=== PATIENT | male | born 1930 | race Caucasian/White ===

== ENCOUNTER 2019-03-25 14:30 | Inpatient (IN) | payer MEDICARE, OTHER ==
[~2019-03-25] VITALS: Ht 160 cm; Wt 79.8 kg
[2019-03-25] MEDS ORDERED: OLANZAPINE 5 MG TABLET PO ONE (14:45)
--- NOTE | 2019-03-25 14:50 | NUR ---
Pt sitting on the bed in no acute distress, calm and cooperative. 1 to 1 security at the bedside for safety.
[2019-03-25 15:11] LABS: BASOPHILS % (AUTO) 0.5 % (0.0-2.0); EOSINOPHILS # (AUTO) 0.1 K/uL (0.0-0.7); EOSINOPHILS % (AUTO) 1.7 % (0.0-7.0); HEMATOCRIT 39.8 % (36.7-47.1); HEMOGLOBIN 13.2 g/dL (12.5-16.3); LYMPHOCYTES # (AUTO) 1.7 K/uL (20.0-40.0); LYMPHOCYTES % (AUTO) 24.7 % (20.5-51.5); MEAN CORPUSCULAR HGB CONC 33 g/dL (32.5-36.3); MEAN CORPUSCULAR VOLUME 90.8 fL (73.0-96.2); MONOCYTES # (AUTO) 0.5 K/uL (2.0-10.0); NEUTROPHILS # (AUTO) 4.6 K/uL (1.8-8.9); NEUTROPHILS % (AUTO) 66.1 % (38.5-71.5); PLATELET COUNT (AUTO) 188 K/uL (152-348); RED BLOOD CELL COUNT(AUTO) 4.38 MIL/uL (4.06-5.63)
[2019-03-25 15:46] LABS: CARBON DIOXIDE 27 mmol/L (21-32); CHLORIDE 106 mmol/L (98-107); CREATININE 1.2 mg/dL (0.6-1.3); GLUCOSE 123 mg/dL (74-106); POTASSIUM 4.8 mmol/L (3.5-5.1); UREA NITROGEN, BLOOD 19 mg/dL (7-18)
[2019-03-25] MEDS ORDERED: MAGN400O6 PO (15:57)
[2019-03-25] MEDS ORDERED: MULT-213 PO (15:57)
[2019-03-25] MEDS ORDERED: ERGO500040 PO (15:57)
[2019-03-25] MEDS ORDERED: CRAN500T2 PO (15:57)
[2019-03-25] MEDS ORDERED: ACET325T53 PO (15:57)
[2019-03-25] MEDS ORDERED: AMIN30LI2 PO (15:57)
[2019-03-25] MEDS ORDERED: RANI150T8 PO (15:57)
[2019-03-25] MEDS ORDERED: MAGN200T4 PO (15:57)
[2019-03-25] MEDS ORDERED: RISP0.5T20 PO ×2 (15:57)
[2019-03-25] MEDS ORDERED: ASPI81TA31 PO (15:57)
[2019-03-25 16:00] LABS: ALANINE AMINOTRANSFERASE 12 U/L (16-63); ALKALINE PHOSPHATASE 94 U/L (50-136); ASPARTATE AMINOTRANSFERASE 16 U/L (15-37); BILIRUBIN,DIRECT 0.1 mg/dL (0.0-0.2); BILIRUBIN,TOTAL 0.4 mg/dL (0.2-1.0); TOTAL PROTEIN, SERUM 7.3 g/dL (6.4-8.2)
[2019-03-25 16:04] LABS: ETHANOL < 3 MG/DL (0-0)
--- NOTE | 2019-03-25 16:10 | NUR ---
Patient is resting comfortably in bed with eyes closed, NAD noted.
--- NOTE | 2019-03-25 16:20 | NUR ---
Pt is medically cleared by Dr Monique, Placed a call to PET for psych eval.
[2019-03-25 16:33] LABS: ACETAMINOPHEN < 2.0 ug/mL (10-30)
--- NOTE | 2019-03-25 16:58 | NUR ---
Talat Stubbs LCSW at the bedside for Psych eval.
--- NOTE | 2019-03-25 17:20 | NUR ---
PT PLACED ON 5150 HOLD FOR GD BY MAURICE HINES [facility].
[2019-03-25 17:39] LABS: *BILIRUBIN,URIN NEGATIVE (NEGATIVE); *BLOOD, URINE NEGATIVE (NEGATIVE); *CLARITY,URINE CLEAR (CLEAR); *COLOR,URINE YELLOW (YELLOW); *KETONES,URINE NEGATIVE (NEGATIVE); LEUKOCYTE ESTERASE ,URINE NEGATIVE (NEGATIVE); NITRITE, URINE NEGATIVE (NEGATIVE); UGLUCOSE NEGATIVE (NEGATIVE)
[2019-03-25] MEDS ORDERED: LORAZEPAM 0.5 MG TABLET PO PRN (18:15)
[2019-03-25] MEDS ORDERED: MAGNESIUM HYDROXIDE 30 ML LIQUID UDC PO PRN (18:15)
[2019-03-25] MEDS ORDERED: ZOLPIDEM 5 MG TABLET PO PRN (18:15)
[2019-03-25] MEDS ORDERED: MAG HYDROX/AL HYDROX/SIMETH 30 ML LIQUID UDC PO PRN (18:15)
[2019-03-25] MEDS ORDERED: ACETAMINOPHEN 325 MG TABLET PO PRN (18:15)
[2019-03-25 20:00] VITALS: BP 122/60
[2019-03-25 21:39] LABS: *AMPHETAMINE, URINE NEGATIVE (NEGATIVE); *BARBITURATE, URINE NEGATIVE (NEGATIVE); *CANNABINOID, URINE NEGATIVE (NEGATIVE); *COCCAINE, URINE NEGATIVE (NEGATIVE)
[2019-03-25 21:40] LABS: *OPIATE, URINE NEGATIVE (NEGATIVE); *PHENCYCLIDINE SCREEN,URINE NEGATIVE (NEGATIVE)
--- NOTE | 2019-03-25 22:00 | NUR ---
ADMITTING NOTE: received to care at 1900. pt initially received by previous shift at 1800, from the emergency room, on a 72 hour hold, for gravely disabled, a transfer from the [facility]. according to the hold, he was attempting to elope, increasingly aggressive and paranoid, believing that staff were taking his checks, and all of his money. upon eveluation by the crisis team, he had no explanation, or viable self care plan. while in the ER, they reported that he appeared distracted by internal stimuli, and had no idea where he was, or why he was even there. upon arrival on the unit, he was still confused. he denied needing to be here, stating that people were stealing from him. upon start of my shift, he was asleep, but woke up when vital signs were taken, and went back to sleep. as of 2199, he remains asleep. no distress noted. will continue to monitor closely. Addendum: 03/26/19 at 0113 by DIANA BISHOP LVN pt was advised of hold. patients rights handbook also provided.
--- NOTE | 2019-03-26 06:00 | NUR ---
slpet 9.5 hours. assited with am care, and shower. currently lying in bed. no distress noted.
[2019-03-26 07:30] VITALS: BP 128/62
[2019-03-26] MEDS: risperiDONE 0.5 MG TABLET PO SCH ×2 (09:13→20:30)
--- NOTE | 2019-03-26 11:14 | NUR ---
WOUND CARE CONSULT: PT PRESENTS WITH SKIN TEAR TO LEFT FOREARM, PRESENT ON ADMISSION. RECOMMENDATIONS MADE FOR SKIN PROTECTION AND WOUND CARE. DISCUSSED WITH NURSING STAFF. WILL SEE PRN. STEVENS IN AGREEMENT WITH PLAN OF CARE. Addendum: 03/26/19 at 1115 by AISHWARYA ESQUIVEL RN Amended: Links added.
--- NOTE | 2019-03-26 11:44 | NUR ---
FIREARMS REPORT: Vp Customer Development completed and submitted a [employer] firearms report for [address] Disability certification. A copy of report has been placed in patient chart.
--- NOTE | 2019-03-26 13:23 | NUR ---
Initial Discharge Planning: Patient currently resides at [facility] [[address] [place] [address]; [phone]]. Neck Cutter awaiting confirmation from Search Engine Optimizer Jaclyn that patient can return to facility. Patient's friend - Lobobeck Chua [[phone]] and patient express desire for patient to return to facility once he is ready for discharge. Neck Cutter will continue to meet with patient, and collaborate with patient, his support, and MD to formulate a proper and safe discharge plan.
[2019-03-26 15:31] VITALS: BP 93/52
[2019-03-26 20:06] VITALS: BP 103/60
--- NOTE | 2019-03-26 22:00 | NUR ---
received to care, lying in bed, pleasant but agitated upon approach. per systems navigator, he wants to leave. believes he was supposed to go to a different hospital, and rob sent him to the wrong place. he was reassured and told that he should discuss with the doctor, tomorrow. he seemed to accept this but refused his bedtime medications. as of 2199, he appears to be asleep, no distress noted. will continue to monitor closely.
[2019-03-27 07:30] VITALS: BP 103/61
[2019-03-27] MEDS: risperiDONE 0.5 MG TABLET PO SCH ×2 (09:00→21:00)
[2019-03-27] MEDS ORDERED: OLANZAPINE 10 MG VIAL IM ONE (09:15)
[2019-03-27 15:30] VITALS: BP 91/66
[2019-03-27 20:35] VITALS: BP 103/61
--- NOTE | 2019-03-27 22:00 | NUR ---
received to care, lying in bed, isolative, and guarded, upon approach. compliant with vital signs, but refused all medications, even when approached with a science consultant. as of 2199 he appears to be asleep. bed alarm on, for safety. no distress noted. will continue to monitor closely.
--- NOTE | 2019-03-28 06:30 | NUR ---
slept well, last night. is now awake. assisted with am care, and shower. no distress noted.
[2019-03-28 07:30] VITALS: BP 120/69
[2019-03-28] MEDS: risperiDONE 0.5 MG TABLET PO SCH ×2 (08:53→20:48)
[2019-03-28 16:00] VITALS: BP 103/65
[2019-03-28] MEDS ORDERED: ACETAMINOPHEN 325 MG TABLET PO PRN (17:15)
[2019-03-28] MEDS ORDERED: MAGNESIUM HYDROXIDE 30 ML LIQUID UDC PO PRN (17:15)
[2019-03-28] MEDS: FAMOTIDINE 20 MG TABLET PO SCH (20:48)
[2019-03-28 21:13] VITALS: BP 106/58
--- NOTE | 2019-03-29 06:42 | NUR ---
GPS: Remain calm and cooperative with meds and care. slept 7:30 hrs through the night. no agitation noted at this time. resting in bed comfortably. continue plan of care.
[2019-03-29 07:30] VITALS: BP 123/61
[2019-03-29] MEDS ORDERED: Medication Not On Formulary EA (Multivitamins W-Minerals (Multivitamin With Minerals) 1 PO SCH (09:00)
[2019-03-29] MEDS ORDERED: MAGNESIUM 200 MG PO SCH (09:00)
[2019-03-29] MEDS: MAGNESIUM OXIDE 400 MG TABLET PO SCH ×2 (09:00→17:57)
[2019-03-29] MEDS: FAMOTIDINE 20 MG TABLET PO SCH ×2 (09:00→20:42)
[2019-03-29] MEDS: risperiDONE 0.5 MG TABLET PO SCH ×3 (09:00→17:57)
[2019-03-29] MEDS: MULTIVIT, IRON, MIN NO. 8, FA TABLET PO SCH (09:00)
[2019-03-29] MEDS: ASPIRIN 81 MG TAB.CHEW PO SCH (09:00)
[2019-03-29] MEDS ORDERED: OLANZAPINE 10 MG VIAL IM ONE ×2 (09:00)
[2019-03-29] MEDS ORDERED: Medication Not On Formulary EA (Amino Acids/Protein Hydrolys (Pro-Stat Liquid) 30 ML) PO SCH (09:00)
--- NOTE | 2019-03-29 09:00 | NUR ---
Pt was offered and encouraged patient to take his medications , explained the risk and benefits of each medication through claims investigator. Patient became angry stated " No querro medicina. no querro medicaina. / Violette trying to explained to patient but yelling, throwing walker to the floor. Undredirectable Dr. Oakes orderd Zyprexa 5 mg IM x one and administered.
--- NOTE | 2019-03-29 09:20 | NUR ---
0920 Zyprexa 5 mg IM not administered due accidental duplicate order. Zyprexa 5mg IM administered at 0910.
[2019-03-29] MEDS: PROTEIN SUPPLEMENT (PROSTAT) 30 ML LIQUID PO SCH (11:40)
[2019-03-29 16:00] VITALS: BP 115/59
[2019-03-29 20:00] VITALS: BP 109/60
[2019-03-30 07:30] VITALS: BP 110/63
[2019-03-30] MEDS: MAGNESIUM OXIDE 400 MG TABLET PO SCH ×2 (08:22→17:25)
[2019-03-30] MEDS: MULTIVIT, IRON, MIN NO. 8, FA TABLET PO SCH (08:23)
[2019-03-30] MEDS: ASPIRIN 81 MG TAB.CHEW PO SCH (08:23)
[2019-03-30] MEDS: risperiDONE 0.5 MG TABLET PO SCH ×3 (08:23→17:25)
[2019-03-30] MEDS: FAMOTIDINE 20 MG TABLET PO SCH ×2 (08:23→20:09)
[2019-03-30] MEDS: PROTEIN SUPPLEMENT (PROSTAT) 30 ML LIQUID PO SCH (08:36)
[2019-03-30 15:47] VITALS: BP 106/57
[2019-03-30 21:14] VITALS: BP 102/68
[2019-03-31 08:30] VITALS: BP 118/64
[2019-03-31] MEDS: risperiDONE 0.5 MG TABLET PO SCH ×3 (10:20→16:40)
[2019-03-31] MEDS: PROTEIN SUPPLEMENT (PROSTAT) 30 ML LIQUID PO SCH (10:20)
[2019-03-31] MEDS: FAMOTIDINE 20 MG TABLET PO SCH ×2 (10:20→20:26)
[2019-03-31] MEDS: ASPIRIN 81 MG TAB.CHEW PO SCH (10:20)
[2019-03-31] MEDS: MAGNESIUM OXIDE 400 MG TABLET PO SCH ×2 (10:21→16:40)
[2019-03-31] MEDS: MULTIVIT, IRON, MIN NO. 8, FA TABLET PO SCH (10:21)
[2019-03-31 15:14] VITALS: BP 94/46
[2019-03-31 20:00] VITALS: BP 106/61
--- NOTE | 2019-04-01 06:40 | NUR ---
GPS: Remain calm and cooperative with meds and care. slept 8:30 hrs through the night. no agitation noted at this time. resting in bed comfortably. continue plan of care.
[2019-04-01 07:30] VITALS: BP 108/57
[2019-04-01] MEDS: risperiDONE 0.5 MG TABLET PO SCH ×2 (08:34→17:30)
[2019-04-01] MEDS: ASPIRIN 81 MG TAB.CHEW PO SCH (08:45)
[2019-04-01] MEDS: FAMOTIDINE 20 MG TABLET PO SCH ×2 (08:46→20:44)
[2019-04-01] MEDS: MAGNESIUM OXIDE 400 MG TABLET PO SCH ×2 (08:46→17:30)
[2019-04-01] MEDS: MULTIVIT, IRON, MIN NO. 8, FA TABLET PO SCH (08:47)
[2019-04-01] MEDS: PROTEIN SUPPLEMENT (PROSTAT) 30 ML LIQUID PO SCH (08:48)
[2019-04-01 15:23] VITALS: BP 102/58
[2019-04-01 20:03] VITALS: BP 119/54
[2019-04-01] MEDS: risperiDONE 1 MG TABLET PO SCH (20:44)
[2019-04-02 07:30] VITALS: BP 111/54
[2019-04-02] MEDS: FAMOTIDINE 20 MG TABLET PO SCH ×2 (08:55→21:18)
[2019-04-02] MEDS: MAGNESIUM OXIDE 400 MG TABLET PO SCH ×2 (08:55→16:43)
[2019-04-02] MEDS: ASPIRIN 81 MG TAB.CHEW PO SCH (08:55)
[2019-04-02] MEDS: MULTIVIT, IRON, MIN NO. 8, FA TABLET PO SCH (08:55)
[2019-04-02] MEDS: risperiDONE 0.5 MG TABLET PO SCH ×2 (08:55→16:43)
[2019-04-02] MEDS: PROTEIN SUPPLEMENT (PROSTAT) 30 ML LIQUID PO SCH (08:56)
[2019-04-02 16:15] VITALS: BP 100/47
[2019-04-02 20:08] VITALS: BP 103/51
[2019-04-02] MEDS: risperiDONE 1 MG TABLET PO SCH (21:17)
[2019-04-03 07:30] VITALS: BP 129/60
[2019-04-03] MEDS: PROTEIN SUPPLEMENT (PROSTAT) 30 ML LIQUID PO SCH (08:00)
[2019-04-03] MEDS: MULTIVIT, IRON, MIN NO. 8, FA TABLET PO SCH (09:00)
[2019-04-03] MEDS: ASPIRIN 81 MG TAB.CHEW PO SCH (09:00)
[2019-04-03] MEDS: risperiDONE 0.5 MG TABLET PO SCH ×2 (09:00→17:30)
[2019-04-03] MEDS: FAMOTIDINE 20 MG TABLET PO SCH ×2 (09:00→20:41)
[2019-04-03] MEDS: MAGNESIUM OXIDE 400 MG TABLET PO SCH ×2 (09:00→17:29)
[2019-04-03 16:00] VITALS: BP 108/52
[2019-04-03] MEDS: risperiDONE 1 MG TABLET PO SCH (20:41)
[2019-04-03 21:38] VITALS: BP 116/60
--- NOTE | 2019-04-03 22:00 | NUR ---
received to care, lying in bed, pleasant, but isolative, and guarded, upon approach. refused all medications offered, even when approached with a curber. as of 2199 he appears to be asleep. bed alarm on, for safety. no distress noted. will continue to monitor closely.
--- NOTE | 2019-04-04 06:00 | NUR ---
slept well, last night. continues to sleep. no distress noted.
[2019-04-04 07:30] VITALS: BP 118/61
[2019-04-04] MEDS: ASPIRIN 81 MG TAB.CHEW PO SCH (08:38)
[2019-04-04] MEDS: PROTEIN SUPPLEMENT (PROSTAT) 30 ML LIQUID PO SCH (08:38)
[2019-04-04] MEDS: MULTIVIT, IRON, MIN NO. 8, FA TABLET PO SCH (08:39)
[2019-04-04] MEDS: risperiDONE 0.5 MG TABLET PO SCH ×2 (08:39→16:09)
[2019-04-04] MEDS: FAMOTIDINE 20 MG TABLET PO SCH ×2 (08:39→21:05)
[2019-04-04] MEDS: MAGNESIUM OXIDE 400 MG TABLET PO SCH ×2 (08:39→16:09)
[2019-04-04 16:10] VITALS: BP 93/43
[2019-04-04] MEDS: risperiDONE 1 MG TABLET PO SCH (21:05)
--- NOTE | 2019-04-04 22:00 | NUR ---
received to care, lying in bed, pleasant, upon approach. compliant with medications, shower, and staff direction. was in the tv room with peers, for about an hour. as of 2200, he appears to be asleep. bed alarm on, for safety. front wheel walker, at bedside. no distress noted. will continue to monitor closely.
[2019-04-04 22:40] VITALS: BP 112/51
[2019-04-05 07:30] VITALS: BP 150/54
[2019-04-05] MEDS: PROTEIN SUPPLEMENT (PROSTAT) 30 ML LIQUID PO SCH (08:00)
[2019-04-05] MEDS: MULTIVIT, IRON, MIN NO. 8, FA TABLET PO SCH (09:22)
[2019-04-05] MEDS: risperiDONE 0.5 MG TABLET PO SCH ×2 (09:22→17:14)
[2019-04-05] MEDS: FAMOTIDINE 20 MG TABLET PO SCH ×2 (09:22→20:01)
[2019-04-05] MEDS: ASPIRIN 81 MG TAB.CHEW PO SCH (09:22)
[2019-04-05] MEDS: MAGNESIUM OXIDE 400 MG TABLET PO SCH ×2 (09:22→17:14)
[2019-04-05 16:00] VITALS: BP 92/52
[2019-04-05 19:51] VITALS: BP 119/53
[2019-04-05] MEDS: risperiDONE 1 MG TABLET PO SCH (20:01)
--- NOTE | 2019-04-05 22:00 | NUR ---
received to care, watching tv with peers, pleasant, upon approach. compliant with medications, and staff direction. as of 2199, he appears to be asleep. bed alarm on, for safety. front wheel walker, at bedside. no distress noted. will continue to monitor closely.
--- NOTE | 2019-04-06 06:00 | NUR ---
slept well, last night. continues to sleep. no distress noted.
[2019-04-06 07:30] VITALS: BP 120/68
[2019-04-06] MEDS: MAGNESIUM OXIDE 400 MG TABLET PO SCH ×2 (09:47→16:37)
[2019-04-06] MEDS: ASPIRIN 81 MG TAB.CHEW PO SCH (09:47)
[2019-04-06] MEDS: MULTIVIT, IRON, MIN NO. 8, FA TABLET PO SCH (09:47)
[2019-04-06] MEDS: risperiDONE 0.5 MG TABLET PO SCH ×2 (09:47→16:37)
[2019-04-06] MEDS: PROTEIN SUPPLEMENT (PROSTAT) 30 ML LIQUID PO SCH (09:47)
[2019-04-06] MEDS: FAMOTIDINE 20 MG TABLET PO SCH ×2 (09:47→20:35)
[2019-04-06 16:00] VITALS: BP 92/41
[2019-04-06 19:52] VITALS: BP 104/49
[2019-04-06] MEDS: risperiDONE 1 MG TABLET PO SCH (20:35)
--- NOTE | 2019-04-06 23:20 | NUR ---
RECEIVED PATIENT IN BED. PLEASANT UPON INTERACTION BUT GUARDED AND ISOLATIVE.TOOK HIS MEDS AND WAS COOPERATIVE WITH STAFF FOR HIS CARE.WILL CONTINUE TO MONITOR.
--- NOTE | 2019-04-07 07:01 | NUR ---
SLEPT FOR 09;00HRS
[2019-04-07 07:44] VITALS: BP 109/60
[2019-04-07] MEDS: ASPIRIN 81 MG TAB.CHEW PO SCH (09:20)
[2019-04-07] MEDS: MAGNESIUM OXIDE 400 MG TABLET PO SCH ×2 (09:21→16:55)
[2019-04-07] MEDS: PROTEIN SUPPLEMENT (PROSTAT) 30 ML LIQUID PO SCH (09:21)
[2019-04-07] MEDS: risperiDONE 0.5 MG TABLET PO SCH ×2 (09:21→16:54)
[2019-04-07] MEDS: MULTIVIT, IRON, MIN NO. 8, FA TABLET PO SCH (09:21)
[2019-04-07] MEDS: FAMOTIDINE 20 MG TABLET PO SCH ×2 (09:21→21:19)
[2019-04-07 15:42] VITALS: BP 106/58
[2019-04-07 19:47] VITALS: BP 117/54
[2019-04-07] MEDS: risperiDONE 1 MG TABLET PO SCH (21:19)
--- NOTE | 2019-04-08 07:02 | NUR ---
Slept 9 hours denies of any distress.
[2019-04-08 07:30] VITALS: BP 120/59
[2019-04-08] MEDS: MAGNESIUM OXIDE 400 MG TABLET PO SCH (08:41)
[2019-04-08] MEDS: ASPIRIN 81 MG TAB.CHEW PO SCH (08:41)
[2019-04-08] MEDS: FAMOTIDINE 20 MG TABLET PO SCH (08:41)
[2019-04-08] MEDS: MULTIVIT, IRON, MIN NO. 8, FA TABLET PO SCH (08:41)
[2019-04-08] MEDS: risperiDONE 0.5 MG TABLET PO SCH (08:41)
[2019-04-08] MEDS: PROTEIN SUPPLEMENT (PROSTAT) 30 ML LIQUID PO SCH (08:42)
--- NOTE | 2019-04-08 10:10 | NUR ---
Discharge Note: Patient will be discharged to [facility] [[address] [place] [address]; [phone]] via ambulance. Please arrange an ambulance for this patient by 2:00pm. Spoke with Bianca at the facility who states they are ready to accept the patient today. Patient is aware and agreeable with discharge plans. Speech Correction Assistant contacted and spoke with patient�s friend � Lobo Chua [[phone]] who is aware and agreeable with discharge plan. Patient will follow-up at the facility with Dr. Alonso (Student Specialist) and Dr. Oakes (Psychiatrist). Patient was given outpatient mental health resources to [facility] , [facility] , and the National Suicide Prevention Lifeline .mj Note:
--- NOTE | 2019-04-08 14:30 | NUR ---
GPS: Nursing Notes: Discharge Notes: Patient awake and responding to his name, cooperative with nursing care, compliant with his medications, following staff directions, denies any SI/HI, denies any AH/VH, denies any pain or discomfort, denies any SOB, discharge to [facility] at [address] [place] [address] , report given to Alvin NGUYEN fast food supervisor, transported to facility via ambulance, took all his belongings with him. Virtualization Consultant contacted and spoke with patient�s friend � Lobo Chua [[phone]] who is aware and agreeable with discharge plan. Patient will follow-up at the facility with Gavin Dhaliwal (Rn Outpatient Surgery) and Dr. Oakes (Psychiatrist). Patient was given outpatient mental health resources to [facility] , [facility] , and the National Suicide Prevention Lifeline .
[2019-04-27] MEDS ORDERED: ERGOCALCIFEROL 50,000 UNIT CAPSULE PO SCH (09:00)
== END 2019-04-08 14:30 | DRG 885 ==
LOC: ER 14:30 → GPS 17:46
PROVIDERS: ADMIT Psychiatry & Neurology Psychiatry
DX: F29 Unspecified psychosis not due to a substance or known physiological condition (principal); F03.91 Unspecified dementia, unspecified severity, with behavioral disturbance; Z86.19 Personal history of other infectious and parasitic diseases; Z91.19 Patient's noncompliance with other medical treatment and regimen; S51.802A Unspecified open wound of left forearm, initial encounter; X58.XXXA Exposure to other specified factors, initial encounter; Z79.899 Other long term (current) drug therapy; Y92.89 Other specified places as the place of occurrence of the external cause
CPT/HCPCS: 36415; 80307; 85025; 93005; A4663; G0480; G0480-TC; J2358